=== PATIENT | female | born 1980 ===

== ENCOUNTER 2025-03-24 14:52 | Emergency (ER) | payer SELFPAY ==
[2025-03-24 14:55] VITALS: BP 175/91
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
[2025-03-24] MEDS: ADACEL 0.5 ML IM (15:53)
[2025-03-24 16:05] VITALS: BP 163/106
== END 2025-03-24 16:05 | disposition home or self-care (01) ==
LOC: EMR 14:52
PROVIDERS: EMERGENCY PHYSICIAN Student in an Organized Health Care Education/Training Program
DX: S61.214A Laceration without foreign body of right ring finger without damage to nail, initial encounter (principal); V18.0XXA Pedal cycle driver injured in noncollision transport accident in nontraffic accident, initial encounter; Y93.55 Activity, bike riding; Z23 Encounter for immunization; R03.0 Elevated blood-pressure reading, without diagnosis of hypertension; D64.9 Anemia, unspecified; Z90.49 Acquired absence of other specified parts of digestive tract
CPT/HCPCS: 99283; 12001; 29130; 90471; 73090; 73130; 90715